=== PATIENT | female | born 1980 | race African-American/Black ===

== ENCOUNTER 2016-10-30 10:32 | Outpatient (CLI) | payer OTHER ==
--- NOTE | 2016-10-30 12:41 | Ultrasound Report ---
TRANSABDOMINAL AND TRANSVAGINAL PELVIC ULTRASOUND: 10/30/16 10:32:00 CLINICAL: Abdominal pelvic mass. FINDINGS: Transabdominal and transvaginal pelvic ultrasound demonstrated and upper normal size uterus measuring 10.3 x 3.7 x 4.4 centimeters. Normal uterine contour and echogenicity. No uterine fibroid or mass identified. The endometrium is normal with a proliferative pattern and measures 8.1 mm AP thickness. Normal right ovary with a dominant 1.7 cm follicle. The right ovary measures 3.4 x 2.5 x 2.0cm. Normal left ovary. The left ovary measures 2.5 x 2.2 x 2.3cm. No adnexal mass. No free fluid. Normal urinary bladder. IMPRESSION: Normal pelvis with no mass identified.
--- NOTE | 2016-10-30 12:49 | Ultrasound Report ---
TRANSABDOMINAL AND TRANSVAGINAL PELVIC ULTRASOUND: 10/30/16 10:32:00 CLINICAL: Abdominal pelvic mass. FINDINGS: Transabdominal and transvaginal pelvic ultrasound demonstrated and upper normal size uterus measuring 10.3 x 3.7 x 4.4 centimeters. Normal uterine contour and echogenicity. No uterine fibroid or mass identified. The endometrium is normal with a proliferative pattern and measures 8.1 mm AP thickness. Normal right ovary with a dominant 1.7 cm follicle. The right ovary measures 3.4 x 2.5 x 2.0 cm. Normal left ovary. The left ovary measures 2.5 x 2.2 x 2.3 cm. No adnexal mass. No free fluid. Normal urinary bladder. IMPRESSION: Normal pelvis with no mass identified. Transcribed By: REF Dictated By: KRISTIE KANG MD Electronically Authenticated By: KRISTIE KANG MD Signed Date/Time: 10/30/16 1237 DD/ 1235 TD/TT: 10/30/16 1237
== END 2016-10-30 10:33 | disposition home or self-care (01) ==
LOC: SPVWC 10:32
PROVIDERS: ATTEND Family Medicine
DX: N20.0 Calculus of kidney (principal)
CPT/HCPCS: 76700; 76830; 76856